=== PATIENT | female | born 1970 | race Caucasian/White ===

== ENCOUNTER 2017-03-07 02:30 | Observation (INO) | payer BC ==
[2017-03-07] MEDS ORDERED: Sodium Chloride 0.9% 1,000 ML IV ONE (02:42)
[2017-03-07] MEDS ORDERED: Morphine 2 MG/ML Syringe IVPUSH ONE (02:42)
[2017-03-07] MEDS ORDERED: Ondansetron 4 MG/2 ML SDV IVPUSH ONE (02:42)
[2017-03-07] MEDS ORDERED: Famotidine 20 MG/2 ML SDV IVPUSH ONE (02:42)
[2017-03-07] MEDS ORDERED: Sodium Chloride 0.9% 2.5 ML Syringe FLUSH PRN (02:42)
[2017-03-07] MEDS ORDERED: Sodium Chloride 0.9% 10 ML Syringe FLUSH PRN (02:42)
[2017-03-07] MEDS ORDERED: Ketorolac 30 MG/ML SDV IVPUSH ONE (02:42)
--- NOTE | 2017-03-07 02:47 | EDM.PDOC ---
ED HPI GENERAL MEDICAL PROBLEM - General Chief Complaint: Abdominal Pain Stated Complaint: STOMACH PAINS Time Seen by Provider: 03/07/17 02:36 - History of Present Illness INITIAL COMMENTS - FREE TEXT/NARRATIVE: HISTORY AND PHYSICAL: History of present illness: The patient is a 46-year-old female with no stated diagnosed GI problems and only abdominal surgical history is a bilateral tubal ligation who presents with acute onset of mid abdominal pain that seems to be migrating more to the right that started on Sunday, approximately 36 hours ago. She said that she had eaten some food and then started having the pain but it went away and she was able to sleep and woke up yesterday morning without any symptoms. She completely normal day yesterday without fever stomach pain vomiting diarrhea and she is unsure when she last had a bowel movement. The patient said that she is very irregular with her bowel movements and has a history of constipation which is not new or different. She has not had any upper respiratory infections but did have a cold last week which improved. Patient says that she felt fine until she ate spaghetti for dinner at 6 PM last evening and then the pain started 30 minutes after that. She describes as a burning but it is not epigastric or in the upper quadrants and is more mid abdomen radiating to the suprapubic and right lower quadrant. She has no history of acid reflux or ulcers and did not take any specific medications [id number] directed at these symptoms. No chest pain or shortness of breath no flank pain or urinary complaints. In the past she has had some food intolerance but has not been consistent. She does not drink much alcohol and has no gallbladder history that she knows of Review of systems: As per history of present illness and below otherwise all systems reviewed and negative. Past medical history: As per history of present illness and as reviewed below otherwise noncontributory. Surgical history: As per history of present illness and as reviewed below otherwise noncontributory. Social history: No reported history of drug or alcohol abuse. Family history: As per history of present illness and as reviewed below otherwise noncontributory. Physical exam: Gen.: Well-developed well-nourished female who looks uncomfortable in the room is nontoxic and vital signs are noted by me HEENT: Atraumatic, normocephalic, pupils reactive, negative for conjunctival pallor or scleral icterus, mucous membranes moist, throat clear, neck supple, nontender, trachea midline. Lungs: Clear to auscultation, breath sounds equal bilaterally, chest nontender. Heart: S1S2, regular rate and rhythm no overt murmurs Abdomen: Soft, nondistended, the patient has hypoactive bowel sounds and she has some voluntary guarding but no involuntary guarding or rebound on my palpation. She is tender in the mid abdomen periumbilically and a bilaterally as well as in the right lower and suprapubic areas. Negative for masses or hepatosplenomegaly. Negative for costovertebral tenderness. Pelvis: Stable nontender. Genitourinary: Deferred. Rectal: Deferred. Extremities: Atraumatic, negative for cords or calf pain. Neurovascular unremarkable. Neuro: Awake, alert, oriented. Cranial nerves II through XII unremarkable. Cerebellum unremarkable. Motor and sensory unremarkable throughout. Exam nonfocal. Diagnostics: CBC CMP amylase lipase UA CT scan of the abdomen and pelvis lactate Therapeutics: IV IV fluids Zofran morphine Pepcid Toradol 0425: Patient states that the pain is pretty much completely gone and she is very comfortable. TESTING results were discussed with the patient and she insists that although she's had chronic constipation she's never had episodes of pain anything like this and has never seen GI in the past and has no family history of IBS Crohn's or ulcerative colitis. I also discussed this case with our hospitalist Dr. Mccullough and he has agreed for observation admission for this inflammation of the terminal ileum. The patient is aware that we will continue to monitor her her labs and she will be nothing by mouth with IV fluids and that if anything changes or evolves she might need to be transferred where GI could evaluate her as we have no GI available here. She is comfortable with this care plan and is agreeable. Impression: Abdominal pain/enteritis with early functional small bowel obstruction Definitive disposition and diagnosis as appropriate pending reevaluation and review of above. Abdomen Pain Score (Numeric/FACES): 1 - Related Data Allergies Allergy/AdvReac Type Severity Reaction Status Date / Time No Known Allergies Allergy Verified 03/07/17 02:40 Home Meds: Home Meds Dextroamphetamine/Amphetamine [Adderall 20 mg Tablet] 1 tab PO DAILY 03/07/17 [ History] Levothyroxine 175 mcg PO ACBRK 03/07/17 [History] ED ROS GENERAL - Review of Systems Review Of Systems: ROS reveals no pertinent complaints other than HPI. ED EXAM, GENERAL - Physical Exam Exam: See Below (See dictation) Course - Vital Signs Last Recorded V/S: Last Vital Signs Temp 36.8 C 03/07/17 03:57 Pulse 72 03/07/17 03:57 Resp 17 03/07/17 03:57 BP 125/85 03/07/17 03:57 Pulse Ox 98 03/07/17 03:57 - Orders/Labs/Meds Orders: Active Orders 24 hr Category Date Time Status Patient Status [ADT] Stat ADT 03/07/17 04:30 Ordered Abdomen Pelvis w Cont [CT] Stat Exams 03/07/17 02:42 Taken Sodium Chloride 0.9% @ 150 MLS/HR (1,000ml) Med 03/07/17 04:30 Ordered Sodium Chloride 0.9% [Normal Saline] 1,000 ml IV ASDIRECTED Sodium Chloride 0.9% [Saline Flush] Med 03/07/17 02:42 Active 10 ml FLUSH ASDIRECTED PRN Sodium Chloride 0.9% [Saline Flush] Med 03/07/17 02:42 Active 2.5 ml FLUSH ASDIRECTED PRN Saline Lock Insert [OM.PC] Stat Oth 03/07/17 02:41 Ordered Medication Orders Sodium Chloride (Normal Saline) 1,000 mls @ 150 mls/hr IV ASDIRECTED SOBEIDA Sodium Chloride (Saline Flush) 10 ml FLUSH ASDIRECTED PRN PRN Reason: Keep Vein Open Last Admin: 03/07/17 02:53 Dose: 10 ml Sodium Chloride (Saline Flush) 2.5 ml FLUSH ASDIRECTED PRN PRN Reason: Keep Vein Open Last Admin: 03/07/17 02:49 Dose: 2.5 ml Labs: Laboratory Tests 03/07/17 03/07/17 03/07/17 Range/Units 02:40 03:05 03:05 WBC 13.61 H (4.0-11.0) K/uL RBC 4.96 (4.30-5.90) M/uL Hgb 14.9 (12.0-16.0) g/dL Hct 43.7 (36.0-46.0) % MCV 88.1 (80.0-98.0) fL MCH 30.0 (27.0-32.0) pg MCHC 34.1 (31.0-37.0) g/dL RDW Std Deviation 43.0 (28.0-62.0) fl RDW Coeff of Jhon 13 (11.0-15.0) % Plt Count 275 (150-400) K/uL MPV 10.00 (7.40-12.00) fL Neut % (Auto) 79.8 (48.0-80.0) % Lymph % (Auto) 11.5 L (16.0-40.0) % [place] % (Auto) 7.6 (0.0-15.0) % Eos % (Auto) 0.9 (0.0-7.0) % Baso % (Auto) 0.2 (0.0-1.5) % Neut # (Auto) 10.9 H (1.4-5.7) K/uL Lymph # (Auto) 1.6 (0.6-2.4) K/uL [place] # (Auto) 1.0 H (0.0-0.8) K/uL Eos # (Auto) 0.1 (0.0-0.7) K/uL Baso # (Auto) 0.0 (0.0-0.1) K/uL Nucleated RBC % 0.0 /100WBC Nucleated RBCs # 0 K/uL Lactate 0.7 (0.20-2.00) mmol/L Sodium 139 (136-146) mmol/L Potassium 4.2 (3.5-5.1) mmol/L Chloride 108 (98-110) mmol/L Carbon Dioxide 23 (21-31) mmol/L BUN 15 (6.0-23.0) mg/dL Creatinine 0.8 (0.6-1.5) mg/dL Est Cr Clr Drug Dosing 85.45 mL/min Estimated GFR (MDRD) > 60.0 ml/min Glucose 109 (60-110) mg/dL Calcium 8.8 (8.8-10.8) mg/dL Total Bilirubin 0.5 (0.1-1.5) mg/dL AST 17 (5-40) IU/L ALT 14 (8-54) IU/L Alkaline Phosphatase 49 (40-150) Total Protein 6.6 (6.0-8.0) g/dL Albumin 3.9 (3.5-5.0) g/dL Globulin 2.7 (2.0-3.5) g/dL Albumin/Globulin Ratio 1.4 (1.3-2.8) Amylase 68 (10-90) U/L Lipase 15 (7-80) U/L Urine Color Urine Appearance Urine pH (5.0-8.0) Ur Specific [place] (1.001-1.035) Urine Protein (NEGATIVE) mg/dL Urine Glucose (UA) (NEGATIVE) mg/dL Urine Ketones (NEGATIVE) mg/dL Urine Occult Blood (NEGATIVE) Urine Nitrite (NEGATIVE) Urine Bilirubin (NEGATIVE) Urine Urobilinogen (<2.0) EU/dL Ur Leukocyte Esterase (NEGATIVE) Urine RBC (0-2/HPF) Urine WBC (0-5/HPF) Ur Epithelial Cells (NONE-FEW) Urine Bacteria (NEGATIVE) 03/07/17 Range/Units 03:50 WBC (4.0-11.0) K/uL RBC (4.30-5.90) M/uL Hgb (12.0-16.0) g/dL Hct (36.0-46.0) % MCV (80.0-98.0) fL MCH (27.0-32.0) pg MCHC (31.0-37.0) g/dL RDW Std Deviation (28.0-62.0) fl RDW Coeff of Jhon (11.0-15.0) % Plt Count (150-400) K/uL MPV (7.40-12.00) fL Neut % (Auto) (48.0-80.0) % Lymph % (Auto) (16.0-40.0) % [place] % (Auto) (0.0-15.0) % Eos % (Auto) (0.0-7.0) % Baso % (Auto) (0.0-1.5) % Neut # (Auto) (1.4-5.7) K/uL Lymph # (Auto) (0.6-2.4) K/uL [place] # (Auto) (0.0-0.8) K/uL Eos # (Auto) (0.0-0.7) K/uL Baso # (Auto) (0.0-0.1) K/uL Nucleated RBC % /100WBC Nucleated RBCs # K/uL Lactate (0.20-2.00) mmol/L Sodium (136-146) mmol/L Potassium (3.5-5.1) mmol/L Chloride (98-110) mmol/L Carbon Dioxide (21-31) mmol/L BUN (6.0-23.0) mg/dL Creatinine (0.6-1.5) mg/dL Est Cr Clr Drug Dosing mL/min Estimated GFR (MDRD) ml/min Glucose (60-110) mg/dL Calcium (8.8-10.8) mg/dL Total Bilirubin (0.1-1.5) mg/dL AST (5-40) IU/L ALT (8-54) IU/L Alkaline Phosphatase (40-150) Total Protein (6.0-8.0) g/dL Albumin (3.5-5.0) g/dL Globulin (2.0-3.5) g/dL Albumin/Globulin Ratio (1.3-2.8) Amylase (10-90) U/L Lipase (7-80) U/L Urine Color YELLOW Urine Appearance CLEAR Urine pH 5.5 (5.0-8.0) Ur Specific [place] 1.015 (1.001-1.035) Urine Protein NEGATIVE (NEGATIVE) mg/dL Urine Glucose (UA) NEGATIVE (NEGATIVE) mg/dL Urine Ketones 15 H (NEGATIVE) mg/dL Urine Occult Blood NEGATIVE (NEGATIVE) Urine Nitrite NEGATIVE (NEGATIVE) Urine Bilirubin NEGATIVE (NEGATIVE) Urine Urobilinogen 0.2 (<2.0) EU/dL Ur Leukocyte Esterase NEGATIVE (NEGATIVE) Urine RBC 0-1 (0-2/HPF) Urine WBC 0-1 (0-5/HPF) Ur Epithelial Cells FEW (NONE-FEW) Urine Bacteria FEW (NEGATIVE) Meds: Medications Generic Name Dose Route Start Last Admin Trade Name Freq PRN Reason Stop Dose Admin Sodium Chloride 1,000 mls @ 150 mls/hr 03/07/17 04:30 Normal Saline IV ASDIRECTED SOBEIDA Sodium Chloride 10 ml 03/07/17 02:42 03/07/17 02:53 Saline Flush FLUSH 10 ml ASDIRECTED PRN Administration Keep Vein Open Sodium Chloride 2.5 ml 03/07/17 02:42 03/07/17 02:49 Saline Flush FLUSH 2.5 ml ASDIRECTED PRN Administration Keep Vein Open Discontinued Medications Generic Name Dose Route Start Last Admin Trade Name Sorenq PRN Reason Stop Dose Admin Famotidine 20 mg 03/07/17 02:42 03/07/17 02:50 Pepcid IVPUSH 03/07/17 02:43 20 mg ONETIME ONE Administration Sodium Chloride 1,000 mls @ 999 mls/hr 03/07/17 02:42 03/07/17 02:56 Normal Saline IV 03/07/17 03:42 999 mls/hr STAT ONE Administration Iopamidol 200 ml 03/07/17 03:53 03/07/17 03:54 Isovue Multipack-370 (76%) IVPUSH 03/07/17 03:54 100 ml ONETIME ONE Administration Ketorolac Tromethamine 30 mg 03/07/17 02:42 03/07/17 02:50 Toradol IVPUSH 03/07/17 02:43 30 mg ONETIME ONE Administration Morphine Sulfate 4 mg 03/07/17 02:42 03/07/17 02:54 Morphine IVPUSH 03/07/17 02:43 4 mg ONETIME ONE Administration Ondansetron HCl 4 mg 03/07/17 02:42 03/07/17 02:53 Zofran IVPUSH 03/07/17 02:43 4 mg ONETIME ONE Administration Departure - Departure Time of Disposition: 04:33 Disposition: Refer to Observation Condition: Good Clinical Impression: Enteritis Abdominal pain Qualifiers: Abdominal location: unspecified location Qualified Code(s): R10.9 - Unspecified abdominal pain - Discharge Information Referrals: PCP,None [Primary Care Provider] - Forms: ED Department Discharge - My Orders Last 24 Hours: My Active Orders 03/07/17 02:41 Saline Lock Insert [OM.PC] Stat 03/07/17 02:42 Abdomen Pelvis w Cont [CT] Stat Sodium Chloride 0.9% [Saline Flush] 10 ml FLUSH ASDIRECTED PRN Sodium Chloride 0.9% [Saline Flush] 2.5 ml FLUSH ASDIRECTED PRN 03/07/17 04:30 Patient Status [ADT] Stat Sodium Chloride 0.9% @ 150 MLS/HR (1,000ml) Sodium Chloride 0.9% [Normal Saline ] 1,000 ml IV ASDIRECTED - Assessment/Plan Last 24 Hours: My Active Orders 03/07/17 02:41 Saline Lock Insert [OM.PC] Stat 03/07/17 02:42 Abdomen Pelvis w Cont [CT] Stat Sodium Chloride 0.9% [Saline Flush] 10 ml FLUSH ASDIRECTED PRN Sodium Chloride 0.9% [Saline Flush] 2.5 ml FLUSH ASDIRECTED PRN 03/07/17 04:30 Patient Status [ADT] Stat Sodium Chloride 0.9% @ 150 MLS/HR (1,000ml) Sodium Chloride 0.9% [Normal Saline ] 1,000 ml IV ASDIRECTED
[2017-03-07 03:34] LABS: CHLORIDE,CL 108 mmol/L (98-110); SODIUM,NA 139 mmol/L (136-146)
[2017-03-07] MEDS ORDERED: Iopamidol 755 MG/ML 200 ML Multipack Bottle IVPUSH ONE (03:53)
[2017-03-07] MEDS ORDERED: Sodium Chloride 0.9% 1,000 ML IV SCH (04:30)
[2017-03-07] MEDS ORDERED: Ondansetron 4 MG/2 ML SDV IVPUSH PRN (05:19)
[2017-03-07] MEDS: Ciprofloxacin in D5W 400 MG in Premix Bag 1 BAG IV SCH ×4 (05:39→17:28)
[2017-03-07] MEDS: metroNIDAZOLE/Normal Saline 500 MG in Premix Bag 1 BAG IV SCH ×3 (06:45→22:49)
--- NOTE | 2017-03-07 09:02 | PCM.HP ---
H&P History of Present Illness - General Date of Service: 03/07/17 Admit Problem/Dx: Admission Diagnosis/Problem Admission Diagnosis/Problem Enteritis - History of Present Illness Initial Comments - Free Text/Narative: 46 yo fm 46 year old fm with history or chronic constipation and congenital pyloric stenosis s/p surgical correction admitted for acute abdominal pain that began yesterday all of a sudden. Pain is burning in quality. Pain is continuous. She was doing totally fine until the pain began. Pain is located on the right side of the abdomen and in the epigastric region and radiates downward to suprapubic region. She feels like her belly is distended as well. She has not had similar pain before. She had no nausea or vomiting prior to onset of pain. She denies any associated diarrhea or urinary changes. She has not had a bm for several days but this is normal for her bc She has history of chronic constipation. She still has her gb. She does not use nsaids. She uses alcohol very rarely. She denies any black or discoloration of stool with last bm. SHe denies passing gas since admission. ED Course Diagnostics: CBC, CMP, amylase, lipase, UA, CT scan of the abdomen and pelvis, lactate Therapeutics:IV, IV fluids, Zofran, morphine, Pepcid, Toradol Abdomen Pain Score (Numeric/FACES): 1 - Related Data Allergies/Adverse Reactions: Allergies Allergy/AdvReac Type Severity Reaction Status Date / Time No Known Allergies Allergy Verified 03/07/17 02:40 Home Medications: Home Meds Dextroamphetamine/Amphetamine [Adderall 20 mg Tablet] 1 tab PO DAILY 03/07/17 [ History] Levothyroxine 175 mcg PO ACBRK 03/07/17 [History] Past Medical History HEENT History: Reports: None Cardiovascular History: Reports: None Respiratory History: Reports: None Gastrointestinal History: Reports: Other (See Below) Other Gastrointestinal History: Pyloric Stenosis Genitourinary History: Reports: None C[employer]IER [employer]ETER History: Reports: Musculoskeletal History: Reports: None Neurological History: Reports: None Psychiatric History: Reports: None Endocrine/Metabolic History: Reports: Hypothyroidism Hematologic History: Reports: None Immunologic History: Reports: None Oncologic (Cancer) History: Reports: None Dermatologic History: Reports: None - Infectious Disease History Infectious Disease History: Reports: None - Past Surgical History Head Surgeries/Procedures: Reports: None Female Surgical History: Reports: Section, Other (See Below) Other Female Surgeries/Procedures: Feng Calderonwilmer Social & Family History - Family History Family Medical History: Noncontributory - Tobacco Use Smoking Status *Q: Never Smoker Second Hand Smoke Exposure: No - Caffeine Use Caffeine Use: Reports: Coffee - Recreational Drug Use Recreational Drug Use: No H&P Review of Systems - Review of Systems: Review Of Systems: See Below General: Reports: No Symptoms HEENT: Reports: No Symptoms Pulmonary: Reports: No Symptoms Cardiovascular: Reports: No Symptoms Gastrointestinal: Reports: Abdominal Pain, Constipation, Distension, Nausea. Denies: Flatus Genitourinary: Reports: No Symptoms Musculoskeletal: Reports: No Symptoms Skin: Reports: No Symptoms Psychiatric: Reports: No Symptoms Neurological: Reports: No Symptoms Hematologic/Lymphatic: Reports: No Symptoms Immunologic: Reports: No Symptoms Exam - Exam Exam: See Below - Vital Signs Vital Signs: Last Vital Signs Temp 36.8 C 03/07/17 08:00 Pulse 71 03/07/17 08:00 Resp 20 03/07/17 08:00 BP 106/65 03/07/17 08:00 Pulse Ox 98 03/07/17 08:00 Weight: 83.189 kg - Exam General: Mild Distress HEENT: Conjunctiva Clear, EACs Clear, EOMI, Hearing Intact, Mucosa Moist & [place] , Nares Patent, Normal Nasal Septum, Posterior Pharynx Clear Neck: Supple, Trachea Midline Lungs: Clear to Auscultation, Normal Respiratory Effort Cardiovascular: Regular Rate, Regular Rhythm GI/Abdominal Exam: Normal Bowel Sounds, Soft, Tender. No: Guarding, Rebound, Hepatomegaly, Splenomegaly Back Exam: Normal Inspection Extremities: Normal Inspection, Normal Capillary Refill Skin: Warm, Dry, Intact Neurological: Cranial Nerves Intact, Reflexes Equal Bilateral Neuro Extensive - Mental Status: Alert, Oriented x3, Normal Mood/Affect, Normal Cognition, Memory Intact - Patient Data Result Diagrams: 03/07/17 02:40 03/07/17 03:05 *Q Meaningful Use (ADM) - VTE *Q VTE Criteria *Q: - Stroke *Q Stroke Criteria *Q: - AMI *Q AMI Criteria *Q: Problem List Initiated/Reviewed/Updated: Yes Orders Last 24hrs: Active Orders 24 hr Category Date Time Status Nothing Per Oral Diet [DIET] Diet 03/07/17 Breakfast Active Ciprofloxacin in D5W [Cipro in D5W 400 MG/200 ML] 400 Med 03/07/17 05:30 Active mg Premix Bag 1 bag IV Q12H Morphine Med 03/07/17 05:19 Active 2 mg IVPUSH Q3H PRN Ondansetron [Zofran] Med 03/07/17 05:19 Active 4 mg IVPUSH Q3H PRN Sodium Chloride 0.9% [Normal Saline] 1,000 ml Med 03/07/17 05:30 Active IV ASDIRECTED metroNIDAZOLE/Normal Saline [Flagyl 500 MG in NS 100 ML Med 03/07/17 06:30 Active ] 500 mg Premix Bag 1 bag IV Q8H Medication Orders Ciprofloxacin/Dextrose 400 mg/ (Premix) 200 mls @ 200 mls/hr IV Q12H [facility] Last Admin: 03/07/17 05:39 Dose: 200 mls/hr Metronidazole 500 mg/ Premix 100 mls @ 100 mls/hr IV Q8H [facility] Last Admin: 03/07/17 06:45 Dose: 100 mls/hr Sodium Chloride (Normal Saline) 1,000 mls @ 125 mls/hr IV ASDIRECTED SOBEIDA Morphine Sulfate (Morphine) 2 mg IVPUSH Q3H PRN PRN Reason: Pain Ondansetron HCl (Zofran) 4 mg IVPUSH Q3H PRN PRN Reason: Nausea/Vomiting Sodium Chloride (Saline Flush) 10 ml FLUSH ASDIRECTED PRN PRN Reason: Keep Vein Open Last Admin: 03/07/17 02:53 Dose: 10 ml Sodium Chloride (Saline Flush) 2.5 ml FLUSH ASDIRECTED PRN PRN Reason: Keep Vein Open Last Admin: 03/07/17 02:49 Dose: 2.5 ml Assessment/Plan Comment:: 46 year old fm with history or chronic constipation and congenital pyloric stenosis s/p surgical correction is admitted for acute abdominal pain and possible SBO #Acute Abdominal Pain -right side & epigastric radiates to groin -CT abd-pelvis with contrast concerning for terminal ileum inflammation and SBO -Leukocytosis present -patient denies any gas since admission -BS present in all 4 quadrants plan: -admit to obs -npo -obtain Mg -start IVF, Zofran, Pepcid, Metronidazole and Ciprofloxacin -consult general surgery
[2017-03-07] MEDS: Morphine 2 MG/ML Syringe IVPUSH PRN ×2 (09:36→16:15)
--- NOTE | 2017-03-07 11:30 | CT ---
EXAM DATE: 03/07/17 PATIENT'S AGE: 46 Patient: FARIBA WORRELL Facility: [place], [place] Site . Site : 1970 Study: CT Abdomen/Pelvis With contrast [id number]/10/[id number] 3:52:31 AM Ordering Physician: Jorge Mir Final Report: INDICATION: Abdominal pain in the right lower quadrant, with nausea TECHNIQUE: CT Abdomen and pelvis with i.v. contrast. Coronal and sagittal reformats were obtained. CONTRAST: Intravenous COMPARISON: None FINDINGS: Lower chest: Unremarkable. Liver: Unremarkable. Spleen: Unremarkable. Pancreas: Unremarkable. Gallbladder: Unremarkable. Kidney: There is a punctate density in the mid zone of the left kidney which may represent a tiny stone or early contrast excretion. Adrenal: Unremarkable. Bowel: There is moderate wall thickening present involving the terminal ileum causing relative small bowel obstruction. The small bowel proximal to this region measures 2.7 cm in diameter and filled with small bowel feces, indicative of stasis. The appendix is normal in appearance and size. Vascular: Unremarkable. Lymph: Unremarkable. Peritoneum: Unremarkable. No pneumoperitoneum is seen. A small amount of abdominal ascites is present. Pelvis: Unremarkable. Soft tissue: Unremarkable. Bone: Unremarkable for age. IMPRESSIONS: 1. There is moderate wall thickening present involving the terminal ileum causing relative small bowel obstruction. The small bowel proximal to this region measures 2.7 cm in diameter and filled with small bowel feces, indicative of stasis. Correlation with history and clinical examination is recommended to distinguish between Crohn`s disease, infectious enteritis or small bowel ischemia. 2. A small amount of abdominal ascites is present. Dictated by Jaron Peters MD @ 03/07/2017 4:04:39 AM Dictated by: Jaron Peters MD @ 03/07/2017 04:04:45 (Electronic Signature) Report Signed by Proxy. JUAN FRANCISCO
--- NOTE | 2017-03-07 12:28 | PCM.CONS ---
H&P History of Present Illness - General Date of Service: 03/07/17 Admit Problem/Dx: Admission Diagnosis/Problem Admission Diagnosis/Problem Enteritis Source of Information: Patient History Limitations: Reports: No Limitations - History of Present Illness Initial Comments - Free Text/Narative: Patient is a 46 year old female who presents with 2 days of crampy sharp abdominal pain. It occurred after eating dinner two nights ago. She rested and the pain went away. Last evening she ate dinner and had a return of the pain. This time it was more severe and constant so she presented to the ED. She had an episode of abdominal distension ~10 years ago that she says was due to constipation. She had no pain with that. Her surgical history is significant for , abdominoplasty and pyloric stenosis as an infant. She is passing gas today but cannot recall when her last BM was. She denies vomiting but feels nauseated. She denies hematochezia or melena. She normally has a BM every 3-4 days. She denies mucousy stool. She denies ever having pain like this. She feels mildly bloated. She denies fevers and chills. She has a past medical history significant for graves disease s/p radioactive iodine ablation. She and her family recently returned from [place]. They all have symptoms of an upper respiratory infection when they were there. Abdomen Pain Score (Numeric/FACES): 1 - Related Data Allergies/Adverse Reactions: Allergies Allergy/AdvReac Type Severity Reaction Status Date / Time No Known Allergies Allergy Verified 03/07/17 02:40 Home Medications: Home Meds Dextroamphetamine/Amphetamine [Adderall 20 mg Tablet] 1 tab PO DAILY 03/07/17 [ History] Levothyroxine 175 mcg PO ACBRK 03/07/17 [History] Past Medical History HEENT History: Reports: None Cardiovascular History: Reports: None Respiratory History: Reports: None Gastrointestinal History: Reports: Other (See Below) Other Gastrointestinal History: Pyloric Stenosis Genitourinary History: Reports: None [employer] History: Reports: Musculoskeletal History: Reports: None Neurological History: Reports: None Psychiatric History: Reports: None Endocrine/Metabolic History: Reports: Hypothyroidism Hematologic History: Reports: None Immunologic History: Reports: None Oncologic (Cancer) History: Reports: None Dermatologic History: Reports: None - Infectious Disease History Infectious Disease History: Reports: None - Past Surgical History Head Surgeries/Procedures: Reports: None GI Surgical History: Reports: Other (See Below) (Pyloromyotomy). Denies: Colonoscopy, EGD Female Surgical History: Reports: Section, Other (See Below) Other Female Surgeries/Procedures: Feng Garrett Social & Family History - Family History Family Medical History: Noncontributory - Tobacco Use Smoking Status *Q: Never Smoker Second Hand Smoke Exposure: No - Caffeine Use Caffeine Use: Reports: Coffee - Recreational Drug Use Recreational Drug Use: No H&P Review of Systems - Review of Systems: Review Of Systems: ROS reveals no pertinent complaints other than HPI. Exam - Exam Exam: See Below - Vital Signs Vital Signs: Last Vital Signs Temp 36.8 C 03/07/17 08:00 Pulse 74 03/07/17 12:00 Resp 18 03/07/17 12:00 BP 107/68 03/07/17 12:00 Pulse Ox 100 03/07/17 12:00 Weight: 83.189 kg - Exam General: Alert, Oriented HEENT: Conjunctiva Clear, EACs Clear, EOMI, Hearing Intact, Pupils Equal, Pupils Reactive Neck: Supple, Trachea Midline Lungs: Clear to Auscultation, Normal Respiratory Effort Cardiovascular: Regular Rate, Regular Rhythm GI/Abdominal Exam: Normal Bowel Sounds, Soft, Non-Tender, No Mass, Distended ( mild). No: Guarding, Rigid, Rebound - Patient Data Result Diagrams: 03/07/17 02:40 03/07/17 03:05 Consult PN Assessment/Plan (1) Terminal ileitis SNOMED Code(s): 562413382 Code(s): K50.00 - CROHN'S DISEASE OF SMALL INTESTINE WITHOUT COMPLICATIONS Current Visit: Yes Problem List Initiated/Reviewed/Updated: Yes Plan: The differential diagnosis for terminal ileitis is varied. Crohns disease (CD) can affect any part of the gastrointestinal (GI) tract, but terminal ileum (TI) is the most frequent localization. Erosions and ulcers in TI may be the result of non-steroidal anti-inflammatory drug (NSAID) intake. Conditions such as lymphoid hyperplasia, lymphoma, bacterial and viral infections and ulcerative colitis (UC) can be a cause. At this time she appears stable and her abdomen is benign. I would continue with prophylactic antibiotics, IVF, NPO, and IV pain medications. No colonoscopy while actively inflamed. She will need one as an outpatient. If she starts feeling better I would start her on a bowel regiment to help keep her stool loose. If she isnt improving over the next 24 hours, consider steroids in order to decrease inflammation. I will continue to follow along as long as patient is here. Please call with questions or concerns.
[2017-03-07] MEDS: Sodium Chloride 0.9% 1,000 ML IV SCH (15:26)
[2017-03-07] MEDS ORDERED: Magnesium Sulfate/Water 2 GM in Premix Bag 1 BAG IV ONE (21:00)
[2017-03-08] MEDS: Morphine 2 MG/ML Syringe IVPUSH PRN (00:14)
[2017-03-08] MEDS: Sodium Chloride 0.9% 1,000 ML IV SCH (02:34)
[2017-03-08] MEDS: Ciprofloxacin in D5W 400 MG in Premix Bag 1 BAG IV SCH ×2 (05:08)
[2017-03-08 06:12] LABS: CHLORIDE,CL 111 mmol/L (98-110); SODIUM,NA 138 mmol/L (136-146)
[2017-03-08] MEDS: metroNIDAZOLE/Normal Saline 500 MG in Premix Bag 1 BAG IV SCH (06:13)
[2017-03-08] MEDS ORDERED: Magnesium Sulfate/Water 2 GM in Premix Bag 1 BAG IV ONE (08:21)
--- NOTE | 2017-03-08 09:33 | PCM.DCSUM1 ---
<Baluch,Cesar - Last Filed: 03/08/17 11:18> Discharge Summary - Hospital Course Free Text/Narrative:: 46 yo fm with history of chronic constipation was admitted on 03/07/17 for abdominal pain and leukocytosis presumed secondary to Terminal Ileitis. Initial CT done in ED revealed Terminal Ileum inflammation. Patient was treated with bowel rest, IVF & prophylactic IV Ciprofloxacin/Metronidazole. Her leukocytosis resolved and abdominal improved significantly. Dr. Silva general surgery was consulted who recommended out-patient colonoscopy. Patients diet was advanced which she tolerated. She was discharged home on 03/08/17. #Right Sided Abdominal Pain #Terminal Ileitis -f/u with general surgery #Chronic Constipation -start fiber supplementation -f/u with general surgery - Discharge Data Discharge Date: 03/08/17 Discharge Disposition: Home, Self-Care 01 Condition: Good - Patient Summary/Data Consults: Consultations 03/07/17 09:54 Consult to Physician [CONS] Routine - Patient Instructions Diet: Clear Liquid Diet (advance as tolerated ) Activity: As Tolerated Notify Provider of: Fever, Increased Pain, Swelling and Redness, Drainage, Nausea and/or Vomiting - Discharge Plan Prescriptions/Med Rec: Ciprofloxacin [Ciprofloxacin HCl] 500 mg PO BID 10 Days #20 tablet metroNIDAZOLE [Metronidazole] 500 mg PO Q8H 10 Days #30 tablet Home Medications: Home Meds Dextroamphetamine/Amphetamine [Adderall 20 mg Tablet] 1 tab PO DAILY 03/07/17 [ History] Levothyroxine 175 mcg PO ACBRK 03/07/17 [History] Ciprofloxacin [Ciprofloxacin HCl] 500 mg PO BID 10 Days #20 tablet 03/08/17 [Rx] metroNIDAZOLE [Metronidazole] 500 mg PO Q8H 10 Days #30 tablet 03/08/17 [Rx] Patient Handouts: Abdominal Pain, Adult, [id number], Ciprofloxacin tablets, Metronidazole tablets or capsules Referrals: Smiley Silva MD [Physician] - 03/12/17 11:15 am Saima Fox NP [Ordering Only Provider] - 03/14/17 2:15 pm - Patient Data Vitals - Most Recent: Last Vital Signs Temp 36.0 C 03/08/17 07:50 Pulse 80 03/08/17 07:50 Resp 20 03/08/17 07:50 BP 116/80 03/08/17 07:50 Pulse Ox 99 03/08/17 07:50 Weight - Most Recent: 83.189 kg I&O - Last 24 hours: Intake & Output 03/07/17 03/08/17 03/08/17 22:59 06:59 14:59 Intake Total 1350 1510 100 Output Total 550 450 Balance 800 1060 100 Lab Results - Last 24 hrs: Laboratory Results - last 24 hr 03/07/17 03/07/17 03/08/17 Range/Units 11:30 11:30 04:40 WBC 7.82 (4.0-11.0) K/uL RBC 4.09 L (4.30-5.90) M/uL Hgb 12.1 (12.0-16.0) g/dL Hct 36.6 (36.0-46.0) % MCV 89.5 (80.0-98.0) fL MCH 29.6 (27.0-32.0) pg MCHC 33.1 (31.0-37.0) g/dL RDW Std Deviation 43.2 (28.0-62.0) fl RDW Coeff of Jhon 13 (11.0-15.0) % Plt Count 199 (150-400) K/uL MPV 9.60 (7.40-12.00) fL Neut % (Auto) 64.2 (48.0-80.0) % Lymph % (Auto) 23.1 (16.0-40.0) % Coke % (Auto) 10.0 (0.0-15.0) % Eos % (Auto) 2.2 (0.0-7.0) % Baso % (Auto) 0.5 (0.0-1.5) % Neut # (Auto) 5.0 (1.4-5.7) K/uL Lymph # (Auto) 1.8 (0.6-2.4) K/uL Coke # (Auto) 0.8 (0.0-0.8) K/uL Eos # (Auto) 0.2 (0.0-0.7) K/uL Baso # (Auto) 0.0 (0.0-0.1) K/uL Nucleated RBC % 0.0 /100WBC Nucleated RBCs # 0 K/uL ESR (0-19) mm/hr Sodium (136-146) mmol/L Potassium (3.5-5.1) mmol/L Chloride (98-110) mmol/L Carbon Dioxide (21-31) mmol/L BUN (6.0-23.0) mg/dL Creatinine (0.6-1.5) mg/dL Est Cr Clr Drug Dosing mL/min Estimated GFR (MDRD) ml/min Glucose (60-110) mg/dL Calcium (8.8-10.8) mg/dL Magnesium 1.4 L (1.5-2.3) mEq/L H. pylori IgG Antibody NEGATIVE (NEG) 03/08/17 03/08/17 Range/Units 04:40 04:40 WBC (4.0-11.0) K/uL RBC (4.30-5.90) M/uL Hgb (12.0-16.0) g/dL Hct (36.0-46.0) % MCV (80.0-98.0) fL MCH (27.0-32.0) pg MCHC (31.0-37.0) g/dL RDW Std Deviation (28.0-62.0) fl RDW Coeff of Jhon (11.0-15.0) % Plt Count (150-400) K/uL MPV (7.40-12.00) fL Neut % (Auto) (48.0-80.0) % Lymph % (Auto) (16.0-40.0) % Coke % (Auto) (0.0-15.0) % Eos % (Auto) (0.0-7.0) % Baso % (Auto) (0.0-1.5) % Neut # (Auto) (1.4-5.7) K/uL Lymph # (Auto) (0.6-2.4) K/uL Coke # (Auto) (0.0-0.8) K/uL Eos # (Auto) (0.0-0.7) K/uL Baso # (Auto) (0.0-0.1) K/uL Nucleated RBC % /100WBC Nucleated RBCs # K/uL ESR 6 (0-19) mm/hr Sodium 138 (136-146) mmol/L Potassium 4.0 (3.5-5.1) mmol/L Chloride 111 H (98-110) mmol/L Carbon Dioxide 20 L (21-31) mmol/L BUN 7 (6.0-23.0) mg/dL Creatinine 0.7 (0.6-1.5) mg/dL Est Cr Clr Drug Dosing 97.65 mL/min Estimated GFR (MDRD) > 60.0 ml/min Glucose 78 (60-110) mg/dL Calcium 7.7 L (8.8-10.8) mg/dL Magnesium (1.5-2.3) mEq/L H. pylori IgG Antibody (NEG) AMELIE Results - Last 24 hrs: Microbiology 03/08/17 00:17 Campylobacter Antigen Assay - Final Stool / Feces - Stool, Formed NEGATIVE CAMPYLOBACTER AG Med Orders - Current: Current Medications Ciprofloxacin/Dextrose 400 mg/ (Premix) 200 mls @ 200 mls/hr IV Q12H [facility] Last Admin: 03/08/17 05:08 Dose: 200 mls/hr Metronidazole 500 mg/ Premix 100 mls @ 100 mls/hr IV Q8H [facility] Last Admin: 03/08/17 06:13 Dose: 100 mls/hr Sodium Chloride (Normal Saline) 1,000 mls @ 125 mls/hr IV ASDIRECTED [facility] Last Admin: 03/08/17 02:34 Dose: 125 mls/hr Morphine Sulfate (Morphine) 2 mg IVPUSH Q3H PRN PRN Reason: Pain Last Admin: 03/08/17 00:14 Dose: 2 mg Ondansetron HCl (Zofran) 4 mg IVPUSH Q3H PRN PRN Reason: Nausea/Vomiting Sodium Chloride (Saline Flush) 10 ml FLUSH ASDIRECTED PRN PRN Reason: Keep Vein Open Last Admin: 03/07/17 02:53 Dose: 10 ml Sodium Chloride (Saline Flush) 2.5 ml FLUSH ASDIRECTED PRN PRN Reason: Keep Vein Open Last Admin: 03/07/17 02:49 Dose: 2.5 ml Discontinued Medications Famotidine (Pepcid) 20 mg IVPUSH ONETIME ONE Stop: 03/07/17 02:43 Last Admin: 03/07/17 02:50 Dose: 20 mg Sodium Chloride (Normal Saline) 1,000 mls @ 999 mls/hr IV STAT ONE Stop: 03/07/17 03:42 Last Admin: 03/07/17 02:56 Dose: 999 mls/hr Sodium Chloride (Normal Saline) 1,000 mls @ 150 mls/hr IV ASDIRECTED [facility] Last Admin: 03/07/17 04:35 Dose: 150 mls/hr Magnesium Sulfate 2 gm/ Premix 50 mls @ 50 mls/hr IV ONETIME ONE Stop: 03/07/17 21:59 Last Admin: 03/07/17 21:47 Dose: 50 mls/hr Magnesium Sulfate 2 gm/ Premix 50 mls @ 50 mls/hr IV ONETIME ONE Stop: 03/08/17 09:20 Last Admin: 03/08/17 08:52 Dose: 50 mls/hr Iopamidol (Isovue Multipack-370 (76%)) 200 ml IVPUSH ONETIME ONE Stop: 03/07/17 03:54 Last Admin: 03/07/17 03:54 Dose: 100 ml Ketorolac Tromethamine (Toradol) 30 mg IVPUSH ONETIME ONE Stop: 03/07/17 02:43 Last Admin: 03/07/17 02:50 Dose: 30 mg Morphine Sulfate (Morphine) 4 mg IVPUSH ONETIME ONE Stop: 03/07/17 02:43 Last Admin: 03/07/17 02:54 Dose: 4 mg Ondansetron HCl (Zofran) 4 mg IVPUSH ONETIME ONE Stop: 03/07/17 02:43 Last Admin: 03/07/17 02:53 Dose: 4 mg *Q Meaningful Use (DIS) - VTE *Q VTE Criteria *Q: - Stroke *Q Stroke Criteria *Q: - AMI *Q AMI Criteria *Q: <Kareem Mccullough - Last Filed: 03/09/17 18:20> Discharge Summary - Patient Summary/Data Consults: Consultations 03/07/17 09:54 Consult to Physician [CONS] Routine - Patient Data Vitals - Most Recent: Last Vital Signs Temp 36.4 C 03/08/17 11:24 Pulse 76 03/08/17 11:24 Resp 20 03/08/17 11:24 BP 119/81 03/08/17 11:24 Pulse Ox 98 03/08/17 11:24 AMELIE Results - Last 24 hrs: Microbiology 03/08/17 00:17 Campylobacter Antigen Assay - Final Stool / Feces - Stool, Formed NEGATIVE CAMPYLOBACTER AG - Final NEGATIVE FOR SHIGA TOXIN 1 - Final NEGATIVE FOR SHIGA TOXIN 2 Med Orders - Current: Current Medications Discontinued Medications Famotidine (Pepcid) 20 mg IVPUSH ONETIME ONE Stop: 03/07/17 02:43 Last Admin: 03/07/17 02:50 Dose: 20 mg Sodium Chloride (Normal Saline) 1,000 mls @ 999 mls/hr IV STAT ONE Stop: 03/07/17 03:42 Last Admin: 03/07/17 02:56 Dose: 999 mls/hr Sodium Chloride (Normal Saline) 1,000 mls @ 150 mls/hr IV ASDIRECTED [facility] Last Admin: 03/07/17 04:35 Dose: 150 mls/hr Ciprofloxacin/Dextrose 400 mg/ (Premix) 200 mls @ 200 mls/hr IV Q12H [facility] Last Admin: 03/08/17 05:08 Dose: 200 mls/hr Metronidazole 500 mg/ Premix 100 mls @ 100 mls/hr IV Q8H [facility] Last Admin: 03/08/17 06:13 Dose: 100 mls/hr Sodium Chloride (Normal Saline) 1,000 mls @ 125 mls/hr IV ASDIRECTED [facility] Last Admin: 03/08/17 02:34 Dose: 125 mls/hr Magnesium Sulfate 2 gm/ Premix 50 mls @ 50 mls/hr IV ONETIME ONE Stop: 03/07/17 21:59 Last Admin: 03/07/17 21:47 Dose: 50 mls/hr Magnesium Sulfate 2 gm/ Premix 50 mls @ 50 mls/hr IV ONETIME ONE Stop: 03/08/17 09:20 Last Admin: 03/08/17 08:52 Dose: 50 mls/hr Iopamidol (Isovue Multipack-370 (76%)) 200 ml IVPUSH ONETIME ONE Stop: 03/07/17 03:54 Last Admin: 03/07/17 03:54 Dose: 100 ml Ketorolac Tromethamine (Toradol) 30 mg IVPUSH ONETIME ONE Stop: 03/07/17 02:43 Last Admin: 03/07/17 02:50 Dose: 30 mg Morphine Sulfate (Morphine) 4 mg IVPUSH ONETIME ONE Stop: 03/07/17 02:43 Last Admin: 03/07/17 02:54 Dose: 4 mg Morphine Sulfate (Morphine) 2 mg IVPUSH Q3H PRN PRN Reason: Pain Last Admin: 03/08/17 00:14 Dose: 2 mg Ondansetron HCl (Zofran) 4 mg IVPUSH ONETIME ONE Stop: 03/07/17 02:43 Last Admin: 03/07/17 02:53 Dose: 4 mg Ondansetron HCl (Zofran) 4 mg IVPUSH Q3H PRN PRN Reason: Nausea/Vomiting Sodium Chloride (Saline Flush) 10 ml FLUSH ASDIRECTED PRN PRN Reason: Keep Vein Open Last Admin: 03/07/17 02:53 Dose: 10 ml Sodium Chloride (Saline Flush) 2.5 ml FLUSH ASDIRECTED PRN PRN Reason: Keep Vein Open Last Admin: 03/07/17 02:49 Dose: 2.5 ml *Q Meaningful Use (DIS) - VTE *Q VTE Criteria *Q: - Stroke *Q Stroke Criteria *Q: - AMI *Q AMI Criteria *Q: - Free Text/Narrative Note: I have examined the patient. I have discussed findings and treatment plan with the resident. I agree with the assessment and plan outline in the following resident's note.
== END 2017-03-08 13:20 | disposition home or self-care (01) ==
LOC: MW.ED 02:30 → MW.ICU 04:30 → MW.MS 17:11
PROVIDERS: ADMIT Internal Medicine; ATTEND Internal Medicine
DX: K50.00 Crohn's disease of small intestine without complications (principal); K59.09 Other constipation; E03.9 Hypothyroidism, unspecified; Z98.890 Other specified postprocedural states; Z79.899 Other long term (current) drug therapy
CPT/HCPCS: 36415; 74177; 80048; 80053; 81001; 82150; 83605; 83690; 83735; 85025; 85652; 86677; 87046; 87899; 96361; 96365; 96366; 96367; 96375; 96376; 99285; G0378; J0744; J1885; J2270; J2405; J3475; J7040; Q9967; 96374; 99284